=== PATIENT | female | born 1995 | race Caucasian/White ===

== ENCOUNTER 2022-04-07 09:30 | Outpatient (CLI) | payer BC, SELFPAY ==
[2022-04-07 14:32] LABS: Lipase* 83 U/L (23-300)
== END 2022-04-07 09:31 | disposition home or self-care (01) ==
LOC: LKVREF 09:33
PROVIDERS: PCP Physician Assistant Medical; Visit Provider Physician Assistant Medical
DX: R10.9 Unspecified abdominal pain (principal)
CPT/HCPCS: 83690; 87086

== ENCOUNTER 2022-05-07 14:59 | Outpatient (CLI) | payer BC, SELFPAY ==
--- NOTE | 2022-05-07 15:00 | CRLHL7_ITS ---
For Patients: As a result of the Century Cures Act, medical imaging exams and procedure reports are released immediately into your electronic medical record. You may view this report before your referring provider. If you have questions, please contact your health care provider. INDICATION: PELVIC PAIN COMPARISON: none TECHNIQUE: 2D mas scale and color Doppler images were acquired of the pelvis using a transabdominal and transvaginal approach. FINDINGS: Sonographic images demonstrate a normal size and smooth outer contour of the uterus. Uterus measures 8.1 cm in length by 3.8 cm in AP diameter by 5.3 cm in transverse dimension. The myometrium has a normal uniform echotexture. The endometrial lining measures 10 mm in composite thickness. Slightly hyperechoic structure located within the endocervical canal measuring 1.3 x 0.6 x 0.4 cm. The right ovary measures 3.4 x 1.8 x 2.3 cm in size and the left ovary measures 3.5 x 1.7 x 2.6 cm. The ovaries demonstrate normal arterial and venous blood flow on color Doppler analysis. There are no suspicious fluid collections within the cul-de-sac. Trace physiologic free fluid. IMPRESSION: Normal ovaries. No adnexal mass or evidence of torsion. Suspicion of an endocervical polyp measuring 1.3 x 0.6 x 0.4 cm. Dictated by Chidi Amezcua MD @ 05/07/2022 3:56:50 PM (Electronically Signed)
== END 2022-05-07 15:00 | disposition home or self-care (01) ==
LOC: US 14:59
PROVIDERS: PCP Physician Assistant Medical; Visit Provider Physician Assistant Medical
DX: R10.2 Pelvic and perineal pain (principal); N84.1 Polyp of cervix uteri
CPT/HCPCS: 76830; 76856; 93976

== ENCOUNTER 2022-06-17 08:18 | Outpatient (CLI) | payer BC, SELFPAY ==
[2022-06-17 13:33] LABS: Cholesterol* 159 mg/dL (90-199)
[2022-06-17 13:34] LABS: Glucose* 97 mg/dL (60-115); HDL Cholesterol* 52 mg/dL (>=50); LDL Cholesterol Calculated 95 mg/dL (<100); Triglycerides* 61 mg/dL (40-149)
[2022-06-17 13:38] LABS: Iron* 89 ug/dL (37-170)
[2022-06-17 13:55] LABS: Vitamin D 25 Hydroxy* 42 ng/mL (30-80)
[2022-06-17 14:23] LABS: Vitamin B12* 504 pg/mL (243-894)
== END 2022-06-17 08:19 | disposition home or self-care (01) ==
PROVIDERS: PCP Physician Assistant Medical; Visit Provider Physician Assistant Medical
DX: Z00.00 Encounter for general adult medical examination without abnormal findings (principal); E66.9 Obesity, unspecified; F41.9 Anxiety disorder, unspecified; Z13.6 Encounter for screening for cardiovascular disorders; Z13.1 Encounter for screening for diabetes mellitus; Z13.29 Encounter for screening for other suspected endocrine disorder
CPT/HCPCS: 80061; 82306; 82607; 82947; 83540; 84443

== ENCOUNTER 2022-07-07 13:03 | Outpatient (CLI) | payer BC, SELFPAY ==
--- NOTE | 2022-07-07 13:00 | CRLHL7_ITS ---
For Patients: As a result of the Century Cures Act, medical imaging exams and procedure reports are released immediately into your electronic medical record. You may view this report before your referring provider. If you have questions, please contact your health care provider. INDICATION: Headache. Speech difficulty. COMPARISON: None. TECHNIQUE: Multiplanar T1, T2, FLAIR and diffusion-weighted imaging. FINDINGS: Normal brain parenchymal morphology and signal intensity. No intracranial hemorrhage. No abnormal ventricular dilatation. Intracranial vascular flow voids are preserved. No mass or mass effect. No midline shift. No restricted diffusion to suggest acute ischemia. Bilateral orbits are unremarkable. Normal appearing sella. Visualized paranasal sinuses and mastoid air cells are unremarkable. IMPRESSION: 1. No acute intracranial abnormality. 2. Normal brain parenchymal morphology and signal intensity Dictated by Aneesh Morrison MD @ 07/07/2022 3:04:12 PM (Electronically Signed)
== END 2022-07-07 13:04 | disposition home or self-care (01) ==
LOC: MRI 13:04
PROVIDERS: PCP Physician Assistant Medical; Visit Provider Physician Assistant Medical
DX: R51.9 Headache, unspecified (principal); R47.9 Unspecified speech disturbances
CPT/HCPCS: 70551

== ENCOUNTER 2022-08-05 15:41 | Outpatient (CLI) | payer BC, SELFPAY ==
[2022-08-05 23:39] LABS: Chlamydia DNA Amplified* NOT DETECTED (No Detected); GC DNA Amplified* NOT DETECTED (No Detected)
== END 2022-08-05 15:42 | disposition home or self-care (01) ==
LOC: LKVREF 16:00
PROVIDERS: PCP Physician Assistant Medical; Visit Provider Physician Assistant Medical
DX: N89.8 Other specified noninflammatory disorders of vagina (principal)
CPT/HCPCS: 0353U; 87491; 87591

== ENCOUNTER 2023-01-09 10:00 | Outpatient (CLI) | payer BC, SELFPAY ==
[2023-01-09 18:57] LABS: Chlamydia DNA Amplified* NOT DETECTED (No Detected); GC DNA Amplified* NOT DETECTED (No Detected)
== END 2023-01-09 10:01 | disposition home or self-care (01) ==
LOC: LKVREF 10:03
PROVIDERS: PCP Physician Assistant Medical; Visit Provider Nurse Practitioner Family
DX: N89.8 Other specified noninflammatory disorders of vagina (principal)
CPT/HCPCS: 87086; 87491; 87591

== ENCOUNTER 2023-05-10 13:41 | Outpatient (REF) | payer OTHER, BC, SELFPAY ==
[2023-05-13 13:57] LABS: Prolactin 12.1 ng/mL (2.8-29.2)
== END 2023-05-10 13:42 | disposition home or self-care (01) ==
LOC: NPINS 13:41
PROVIDERS: PCP Physician Assistant Medical
DX: N83.00 Follicular cyst of ovary, unspecified side (principal); Z13.29 Encounter for screening for other suspected endocrine disorder; Z11.9 Encounter for screening for infectious and parasitic diseases, unspecified; Z31.5 Encounter for procreative genetic counseling; Z31.7 Encounter for procreative management and counseling for gestational carrier
CPT/HCPCS: 84146; 84443; 86762; 86787

== ENCOUNTER 2023-05-31 12:22 | Outpatient (CLI) | payer OTHER, BC, SELFPAY | END 2023-05-31 12:23 | disposition home or self-care (01) | LOC: LKVREF 13:02 | PROVIDERS: PCP Physician Assistant Medical; Visit Provider Physician Assistant | DX: R35.0 Frequency of micturition (principal) | CPT/HCPCS: 87086 ==

== ENCOUNTER 2023-11-15 08:03 | Outpatient (CLI) | payer OTHER, SELFPAY ==
--- NOTE | 2023-11-15 08:15 | CRLHL7_ITS ---
For Patients: As a result of the Century Cures Act, medical imaging exams and procedure reports are released immediately into your electronic medical record. You may view this report before your referring provider. If you have questions, please contact your health care provider. INDICATION: viability and embryo transfer 09/30/2023 COMPARISON: None. TECHNIQUE: Real-time mas-scale imaging of the pelvis was performed. FINDINGS: Sonographic imaging demonstrates a single living intrauterine gestation. The embryo demonstrates a regular cardiac rate measuring 178 beats per minute. The embryo`s crown-rump length measurement of 2.5 cm corresponds to a gestational age of 9 weeks 1 day with a sonographic due date of 06/18/2024. There is a normal-appearing yolk sac. There are no gross abnormalities noted within the embryo at this early state of development. The gestational sac has a normal appearance. There is no evidence of a perigestational hemorrhage. The amount of fluid within the sac appears appropriate for gestational age. The cervix is closed. The myometrium appears normal. Normal left ovary. Right ovary unremarkable. There are no suspicious fluid collections noted in the cul-de-sac. IMPRESSION: Single living intrauterine with sonographic gestational age 9 weeks 1 day and sonographic due date of 06/18/2024. Dictated by Chidi Amezcua MD @ 11/15/2023 12:05:32 PM (Electronically Signed)
== END 2023-11-15 08:04 | disposition home or self-care (01) ==
LOC: US 08:04
PROVIDERS: PCP Physician Assistant Medical; Visit Provider Registered Nurse
DX: O09.811 Supervision of pregnancy resulting from assisted reproductive technology, first trimester (principal); Z3A.09 9 weeks gestation of pregnancy
CPT/HCPCS: 76817; 86703; 86706; 86803; 86850; 86900; 86901; 87086; 87340

== ENCOUNTER 2023-11-15 09:56 | Outpatient (CLI) | payer OTHER, SELFPAY | END 2023-11-15 09:57 | disposition home or self-care (01) | PROVIDERS: PCP Physician Assistant Medical; Visit Provider Physician Assistant | DX: Z34.81 Encounter for supervision of other normal pregnancy, first trimester (principal) | CPT/HCPCS: 86592; 86703; 86704; 86706; 86762; 86787; 86803; 86850; 86900; 86901; 87086; 87340 ==

== ENCOUNTER 2024-01-25 07:49 | Outpatient (CLI) | payer OTHER, SELFPAY | END 2024-01-25 07:50 | disposition home or self-care (01) | LOC: US 07:50 | PROVIDERS: PCP Physician Assistant Medical; Visit Provider Advanced Practice Midwife | DX: O09.812 Supervision of pregnancy resulting from assisted reproductive technology, second trimester (principal); Z3A.19 19 weeks gestation of pregnancy | CPT/HCPCS: 76811 ==

== ENCOUNTER 2024-03-26 10:05 | Outpatient (CLI) | payer OTHER, SELFPAY ==
--- NOTE | 2024-03-26 10:15 | CRLHL7_ITS ---
For Patients: As a result of the Cures Act, medical imaging exams and procedure reports are released immediately into your electronic medical record. You may view this report before your referring provider. If you have questions, please contact your health care provider. INDICATION: velamentous cord insertion COMPARISON: 02/24/2024 TECHNIQUE: Real time mas scale imaging of the fetus was performed. FINDINGS: Sonographic imaging demonstrates a single living intrauterine gestation. Fetus demonstrates a regular cardiac rate of 147 beats per minute. Fetus has a vertex position. The placenta lies anteriorly. Amniotic fluid volume appears normal and there is a single deepest vertical pocket: 4.7 cm. The estimated weight is 1099gm which lies at the 20th %. On the prior OB ultrasound exam dated 02/24/2024 the estimated weight was at the 13th%. BPD less than 3rd percentile. HC is 17th percentile. AC 47th percentile. FL 7th percentile. The HC/AC ratio measures 1.07 range (1.04-1.22). IMPRESSION: Sonographic gestational age 27 weeks 2 days and sonographic due date of 06/23/2024. Sonographic age 6 days behind the clinical age. Estimated weight at 20th percentile. Abdominal circumference 47th percentile. BPD less than 3rd percentile. Dictated by Chidi Amezcua MD @ 03/27/2024 10:56:35 AM (Electronically Signed)
== END 2024-03-26 10:06 | disposition home or self-care (01) ==
LOC: US 10:06
PROVIDERS: PCP Physician Assistant Medical; Visit Provider Physician Assistant
DX: O43.122 Velamentous insertion of umbilical cord, second trimester (principal); Z3A.27 27 weeks gestation of pregnancy
CPT/HCPCS: 76816

== ENCOUNTER 2024-03-26 10:05 | Outpatient (CLI) | payer OTHER, SELFPAY | END 2024-03-26 10:06 | disposition home or self-care (01) | LOC: NFLDREF 03-28 09:37 | PROVIDERS: PCP Physician Assistant Medical; Referring Provider Physician Assistant Medical; Visit Provider Physician Assistant | DX: Z34.93 Encounter for supervision of normal pregnancy, unspecified, third trimester (principal); Z3A.28 28 weeks gestation of pregnancy | CPT/HCPCS: 86592 ==

== ENCOUNTER 2024-04-23 07:18 | Outpatient (CLI) | payer OTHER, SELFPAY ==
--- NOTE | 2024-04-23 07:15 | CRLHL7_ITS ---
For Patients: As a result of the Century Cures Act, medical imaging exams and procedure reports are released immediately into your electronic medical record. You may view this report before your referring provider. If you have questions, please contact your health care provider. INDICATION: Third trimester scan, evaluate growth. Velamentous Cord Insert. COMPARISON: 03/26/2024 TECHNIQUE: Real time mas scale imaging of the fetus was performed. FINDINGS/IMPRESSION: Sonographic imaging demonstrates a single living intrauterine gestation. Fetus demonstrates a regular cardiac rate of 145 beats per minute. Fetus has a vertex position. The placenta lies anteriorly. Amniotic fluid volume appears normal and there is a single deepest vertical pocket: 4.6 cm. The estimated weight is 1715gm which lies at the 15th %. On the prior OB ultrasound exam dated 03/26/2024 the estimated weight was at the 20th%. BPD 7th percentile. HC 29th percentile. AC is 29th percentile. FL is 5th percentile. The HC/AC ratio measures 1.08 range (0.96-1.16). Sonographic gestational age 31 weeks 2 days and sonographic due date of 06/23/2024. Sonographic age 6 days behind the clinical age. Dictated by Chidi Amezcua MD @ 04/23/2024 8:36:27 AM (Electronically Signed)
== END 2024-04-23 07:19 | disposition home or self-care (01) ==
LOC: US 07:19
PROVIDERS: PCP Physician Assistant Medical; Visit Provider Registered Nurse
DX: O43.123 Velamentous insertion of umbilical cord, third trimester (principal); Z3A.31 31 weeks gestation of pregnancy
CPT/HCPCS: 76816

== ENCOUNTER 2024-05-21 07:16 | Outpatient (CLI) | payer OTHER, SELFPAY ==
--- NOTE | 2024-05-21 07:15 | CRLHL7_ITS ---
For Patients: As a result of the Century Cures Act, medical imaging exams and procedure reports are released immediately into your electronic medical record. You may view this report before your referring provider. If you have questions, please contact your health care provider. INDICATION: Velamentous cord insertion, IVF COMPARISON: 04/23/2024 TECHNIQUE: Christopher-scale and color Doppler of the gravid uterus and fetus from a transabdominal approach. Duplex Doppler ultrasound of the umbilical artery. FINDINGS: Provided gestational age: 36 weeks 1 day Single intrauterine gestation in a vertex presentation. heart rate is 132 bpm. The heart, stomach, kidneys, and bladder appear normal. Normal appearance of the nostrils and upper lip. No pleural effusion, pericardial effusion, ascites, or skin edema. Biparietal diameter: 8.4 cm Head circumference: 31.8 cm Abdominal circumference: 30.3 cm Femur length: 6.6 cm HC/AC: 1.05, normal for gestational age. The composite ultrasound estimated gestational age is 34 weeks 3 days. The estimated weight is 2338 grams, or 5 pounds 4. This corresponds to the 10th percentile for gestational age. Amniotic fluid volume is normal. The placenta is anterior. No previa. No periplacental hemorrhage. WELLBEING tone: 0/2 movement: 2/2 breathin/2 Amniotic fluid volume: 2/2 The single deepest vertical pocket measures: 5.4 cm. The umbilical artery S/D ratio is 3.1, which is normal for gestational age. MATERNAL Cervix could not be seen transabdominally. IMPRESSION: 1. Single intrauterine gestation. Estimated weight is at the 10th percentile for gestational age. 2. Biophysical profile score is 6/8. No points for tone. 3. Normal umbilical artery SD ratio for gestational age. Dictated by Monica Maurer MD @ 05/21/2024 8:36:48 AM (Electronically Signed)
== END 2024-05-21 07:17 | disposition home or self-care (01) ==
LOC: US 07:18
PROVIDERS: PCP Physician Assistant Medical; Visit Provider Registered Nurse
DX: O43.123 Velamentous insertion of umbilical cord, third trimester (principal); O36.8130 Decreased fetal movements, third trimester, not applicable or unspecified; Z3A.36 36 weeks gestation of pregnancy
CPT/HCPCS: 76816; 76819; 76820; 87081; 87653

== ENCOUNTER 2024-05-28 07:23 | Outpatient (CLI) | payer OTHER, SELFPAY ==
--- NOTE | 2024-05-28 07:15 | CRLHL7_ITS ---
For Patients: As a result of the Cures Act, medical imaging exams and procedure reports are released immediately into your electronic medical record. You may view this report before your referring provider. If you have questions, please contact your health care provider. OB BIOPHYSICAL PROFILE, 05/28/2024 CLINICAL HISTORY: IVF, velamentous CI. GA: 37 weeks 0 days. COMPARISON: 04/23/2024, 03/26/2024. TECHNIQUE: Transabdominal. FINDINGS: Gestation: Single. Cervix: Not visualized. Positioning: Vertex. Amniotic Fluid: 5.5 cm. Biophysical Profile 8 Total Score 2 Gross Body Movements 2 Tone 2 Respiratory Motion 2 Amniotic Fluid Placenta Technique: TA. Position: Anterior. Dopplers Heart Rate: 131 bpm. IMPRESSION: Normal biophysical profile score of 8/8. Chidi Amezcua M.D. Diagnostic Radiologist [email or web address] Transcribed: 9:50 am DW/Dictated by: Chidi Amezcua MD @ 05/28/2024 8:14:00 AM (Electronically Signed)
== END 2024-05-28 07:24 | disposition home or self-care (01) ==
LOC: US 07:24
PROVIDERS: PCP Physician Assistant Medical; Visit Provider Registered Nurse
DX: O43.123 Velamentous insertion of umbilical cord, third trimester (principal); O09.813 Supervision of pregnancy resulting from assisted reproductive technology, third trimester; Z33.3 Pregnant state, gestational carrier; Z3A.37 37 weeks gestation of pregnancy
CPT/HCPCS: 76819

== ENCOUNTER 2024-06-04 07:16 | Outpatient (CLI) | payer OTHER, SELFPAY ==
--- NOTE | 2024-06-04 07:15 | CRLHL7_ITS ---
For Patients: As a result of the Cures Act, medical imaging exams and procedure reports are released immediately into your electronic medical record. You may view this report before your referring provider. If you have questions, please contact your health care provider. OB ULTRASOUND BIOPHYSICAL PROFILE ROBERT by US: 06/17/2024. GA: 38 w, 1 d. Single. Comparison: 05/28/2024, 05/21/2024, 04/23/2024. INDICATION: IVF Velamentous CI. TECHNIQUE: Real time mas scale imaging of the fetus was performed. Transabdominal. CERVIX: Not visualized. POSITIONIN.7. AMNIOTIC FLUID: 8.7 cm. SDP (N: greater than 2 x 1 cm) BIOPHYSICAL PROFILE: Total score: 2. Gross body movements: 2. tone: 2. Respiratory activity: 2. Amniotic fluid: 2.(SDP N: greater than 2 x 1 cm) PLACENTA POSITION: Anterior. DOPPLER: heart rate: 132 bpm. IMPRESSION: 1. Normal biophysical profile 88. 2. Amniotic fluid single deepest pocket 8.7 cm. SCOT 24.7 cm. Chidi Amezcua M.D. Diagnostic Radiologist [email or web address] JR/Dictated by: Chidi Amezcua MD @ 06/04/2024 8:19:00 AM (Electronically Signed)
== END 2024-06-04 07:17 | disposition home or self-care (01) ==
PROVIDERS: PCP Physician Assistant Medical; Visit Provider Registered Nurse
DX: O40.3XX0 Polyhydramnios, third trimester, not applicable or unspecified (principal); O43.123 Velamentous insertion of umbilical cord, third trimester; Z3A.38 38 weeks gestation of pregnancy; Z33.3 Pregnant state, gestational carrier
CPT/HCPCS: 76819

== ENCOUNTER 2024-06-04 08:56 | Inpatient (IN) | payer OTHER, SELFPAY ==
[2024-06-04] VITALS (17 sets, daily range): BP systolic 108–141; BP diastolic 62–84; PULSE 83–113; RESP 16; TEMP 36.5–36.7; O2SAT 90–100; BMI 41.1
--- NOTE | 2024-06-04 12:40 | W.PM.LDBA ---
Subjective History of Present Illness Date Seen: 06/04/24 Narrative: Sravani is being admitted to Labor and Delivery for PROM. She was in the clinic for a routine visit and had spontaneous PROM when laying down with a large amount of clear fluid. She is a 29 year old at 38.1 weeks gestation. Her full history and physical was dictated by Ramiro Espinal CNM on 05/28/24. Please see this for details. She denies feeling contractions on admit but does endorses a small amount of irregular cramping. Discussed options for continuing with labor including expectant management or augmentation. Risks and benefits of each were discussed and questions answered. She would like to proceed with expectant management. The parents of this child will be arriving by plane late tonight. Specific Issues/Plans Dads: [place], living in [facility], hope to be here for delivery IOL 06/11 for IVF/Velamentous Cord Insertion, FOB's will be here for IOL; desires membrane sweep Tuesday before, ok'd, consent signed H&P done by Ramiro Espinal CNM on 05/28/24 #IVF, surrogate carrier Consider ASA 81mg Completed pre implantation genetics Donor Egg Level 2 ultrasound and MFM consult: ordered echo: Likely normal echo. Technically difficult study. Consider growth ultrasound at 32: see testing/US below 36 weeks start weekly BPP: may desire NST's if able to do in [place] IOL at 39 0/7: Plan with Surrogates so that they can come, Jun 11 tentatively #History of gestational diabetes Hgb A1-C: 4.9 Early 1hr GTT: 113 done 02/08/2024 #Migraines #History of depression, doing well off medication # Obesity, BMI 37.7; Hx of gastric sleeve in 2021 Hgb A1-C: 4.9 # Velamentous Cord insertion Growth every 4 weeks Growth US at 28 weeks: 19.6%ile once weekly BPP beginning at 36 weeks for velamentous cord insertion: Has visits already scheduled # Mild polyhydramnios SCOT 24.7. Dx at 38.1wks. Ultrasound: Level 2 US and MFM recommendations 01/24: placenta anterior, no previa Velamentous insertion: rec. surveillance w/ growth scans every 4 weeks and surveillance w/ once weekly BPP beginning at 36 weeks for velamentous cord insertion and IVF . no anomalies seen growth and efw appropriate scot normal Refer to Peds Cardiology for echo, scheduled 02/23 Refer to [facility] for growth and anatomy eval (incl. anatomy not well-visualized on FAS), same day as echo: Anatomy completed, normal. EFW 13th percentile, previously 54th percentile Consider delivery at or after 39 0/7 weeks 03/26/2024: Growth US: Vertex, EFW 19.6%ile. 05/21/2024: Growth US: Vertex, EFW 10.1% OB - Problem Based A/P Additional Plan (1) Polyhydramnios affecting in third trimester: Status: Acute (2) Velamentous insertion of umbilical cord: Status: Acute (3) Surrogate : Status: Acute (4) Conceived by in vitro fertilization: Status: Acute (5) BMI 37.0-37.9, adult: Status: Acute (6) Depressed mood: Problem details: History of utilizing Effexor. Status: Chronic (7) Anxiety: Problem details: Held/stopped prior to . Interested in pursuing surrogacy. She wanted to try to see with things would like without the medication given she had coping tools. History of being on Effexor. Status: Chronic Plan ASSESSMENT:? at 38.1 weeks gestation? GBS negative? complicated by: Newly diagnosed polyhydramnios, velamentous cord insertion, IVF and surrogacy , prepregnancy BMI 37, history of anxiety and depression.? Labor type: PROM Blood type:?A+ ?? PLAN:? 1. Reviewed risks and benefits of argumentation with Pitocin vs expectant management. Pt prefers expectant management. Can consider Pitocin if no signs of progression to active labor in 6 hours. ? 2. Desires water . Consent signed. Hep C negative.? 3. Candidate for analgesia of choice. Planning unmedicated .? 4. Anticipate ? 5. Expectant management at this time.? 6. Continuous monitoring for newly diagnosed polyhydramnios. Delivery/Labor/Induction Plan Plan: expectant management OB Result Labs Blood Type: A (+) positive Rubella: immune RPR/VDLR: nonreactive GBS Status: negative HBsAG: negative OB Exam Physical Exam Vital signs: Temp Pulse BP Pulse Ox 98.1 F 83 115/66 94 06/04/24 12:01 06/04/24 12:01 06/04/24 12:01 06/04/24 08:58 Narrative: Psychiatric:? Alert and oriented x3? HEENT:? Normocephalic, atraumatic? Neck:? Supple without adenopathy or thyromegaly? Lungs:? Clear to auscultation bilaterally? Heart:? Regular rate and rhythm, no murmur, rub or gallop? Abdomen:? Soft, nontender, and gravid? Extremities:? No edema or erythema? Detailed Labor and Delivery Exam Patient Gravid: Yes Contraction intensity: Mild Fetus (Single) Heart Rate Baseline: 130 Monitor Accelerations: Absent Monitor Decelerations: None Halfway Variability: Moderate (6-25)
[2024-06-04] MEDS: OXYTOCIN 10 UNIT/ML INJ IM (13:48)
--- NOTE | 2024-06-04 14:10 | W.PM.OBVAGDE ---
OB Procedure Vag Delivery Mother Details Mother Details: The patient is a 29 year-old, 2, Para 1, admitted on 06/04/24 at 38.1 Days gestation. : 2 Para: 2 Weeks Gestation: 38.1 Admission Date: 06/04/24 Additional Details Amniotic Membrane Status: SROM Amniotic Membrane Rupture Date: 06/04/24 Amniotic Membrane Rupture Time: 08:45 Amniotic Membrane Fluid Description: Clear Analgesia/Anesthesia Type: None Waterbirth: Yes Pitcoin: Yes ([facility] only) Intrapartal Events: Precipitous Labor <3 Hrs Labor Onset: 12:31 Complete: 13:20 Pushin:20 Heart: heart tones during second stage were difficult to trace due to maternal position and body habitus as well as rapid progression in the second stage. FHR mostly 130's per tracing and heard by the monitors. Delivery Details Delivery Date: 06/04/24 Delivery Time: 13:29 Route of delivery: Gender: Male Infant Viability: Alive; Heart Rate Present Position at Delivery: OA Delivery Details: Patient was admitted for PROM with a large amount of clear fluid and progressed normally. SROM noted at 0845 with clear fluid. Patient was presumed complete with spontaneous pushing at 1320. of a viable male at 1329 in the tub. Vertex delivered OA. No nuchal cord or shoulder. Shoulders took about 50 seconds to delivery due to lack of maternal effort, there was not a shoulder dystocia. Body delivered easily and without incident. passed to mothers abdomen. Due to lack for breathing effort the decision was made at less than 1 minute to clamp and cut the cord. Baby had great respiratory effort and cry as soon as he was placed on the warmer. APGARS were 7 at one minute and 9 at five minutes respectively. Mouth was bulb suctioned. Intact placenta with a 3 vessel cord delivered spontaneously at 1341. For delivery of the placenta there was very little traction placed on the cord for known velamentous cord insertion. It delivered easily with maternal bearing down and very light traction on the cord. The placenta was noted to have velamentous and marginal cord insertion as well as a circumvallate placenta. will end placenta to pathology. Fundus firm. Very small 1st degree labial and perineal lacerations were identified and were well approximated and hemostatic. After shared decision making they were not repaired. QBL 30 cc. Mother and baby stable; mother plans to breastfeed. weight 6lb 8oz.?She was given the option to hold baby skin to skin or swaddled given her surrogacy status but did desire to do skin to skin as she felt this what was best for baby. Encouraged her to inform us as to what she is comfortable with or not. 1 Minute Interval Total Score: 7 5 Minute Interval Total Score: 9 Additional Details Shoulder Dystocia: No Placenta Delivery Time: 13:41 Placental Delivery Description: Spontaneous Procedure Done: Global Blood Loss: 30 Laceration: Perineal - 1st Degree (and 1st degree labial ) Episiotomy Description: None Blood Loss Measurement Type: QBL Bakri Used: No Sponge/Need Count Correct: Yes Cord Vessel Description: 3 Vessels Event Summary Status: Mother and infant were stable after delivery. Disposition: floor
[2024-06-05 03:06] VITALS: BP 116/78; PULSE 71; RESP 16; TEMP 36.5; O2SAT 98
[2024-06-05 08:38] VITALS: BP 117/80; PULSE 73; RESP 16; TEMP 36.7; O2SAT 99
[2024-06-05] MEDS: DOCUSATE SODIUM 100 MG CAPSULE PO (08:44)
--- NOTE | 2024-06-05 11:16 | PM.OBDSVD1 ---
DS: Providers Provider Date Seen: 06/05/24 Date of admission: 06/04/24 08:56 Primary care physician: Amarilis Romero PA-C Admitting Clinician: Radha Baez CNM Attending Physician on discharge: Monica Long CNM DS: Diagnosis Discharge Diagnosis (1) care and examination immediately after delivery: Status: Acute (2) Lactating mother: Status: Acute (3) Surrogate : Status: Acute (4) Depressed mood: Status: Chronic Problem details: History of utilizing Effexor. (5) Anxiety: Status: Chronic Problem details: Held/stopped prior to . Interested in pursuing surrogacy. She wanted to try to see with things would like without the medication given she had coping tools. History of being on Effexor. Exam Narrative: Exam Narrative: GENERAL APPEARANCE:? normal affect, alert, no distress MOOD:? appropriate CHEST:? clear to auscultation HEART:? regular rate and rhythm ABDOMEN:? soft, non-tender the uterine fundus is At Umbilicus, Midline and is appropriate for the stage of recovery. PERINEUM:? mild edema of the perineum, there is a Perineal Laceration,?1st degree, that is healing well. EXTREMITIES:? normal and no edema Const: Vital Signs, click to edit/add: Vital Signs - 24 hr 06/04/24 12:01 06/04/24 13:28 06/04/24 13:39 Temperature 98.1 F 97.8 F Pulse Rate 83 Pulse Rate [Pulse Oximeter] Respiratory Rate Blood Pressure 115/66 Blood Pressure [Ri ght Arm] Pulse Oximetry 100 Oxygen Delivery Md thod 06/04/24 13:44 06/04/24 13:49 06/04/24 13:54 Temperature Pulse Rate 95 Pulse Rate [Pulse Oximeter] Respiratory Rate Blood Pressure 124/71 Blood Pressure [Ri ght Arm] Pulse Oximetry 100 100 90 Oxygen Delivery Md thod 06/04/24 13:59 06/04/24 14:14 06/04/24 14:29 Temperature Pulse Rate 88 94 100 Pulse Rate [Pulse Oximeter] Respiratory Rate Blood Pressure 126/62 126/65 115/70 Blood Pressure [Ri ght Arm] Pulse Oximetry Oxygen Delivery Md thod 06/04/24 14:44 06/04/24 14:59 06/04/24 15:14 Temperature Pulse Rate 105 H 86 100 Pulse Rate [Pulse Oximeter] Respiratory Rate Blood Pressure 114/67 109/65 141/72 H Blood Pressure [Ri ght Arm] Pulse Oximetry Oxygen Delivery Me thod 06/04/24 15:29 06/04/24 20:03 06/04/24 23:27 Temperature 98.1 F 97.7 F Pulse Rate 94 Pulse Rate [Pulse Oximeter] 90 84 Respiratory Rate 16 16 Blood Pressure 109/66 Blood Pressure [Ri ght Arm] 124/76 108/63 Pulse Oximetry 99 99 Oxygen Delivery Me thod Room Air Room Air 06/05/24 03:06 06/05/24 08:38 Temperature 97.7 F 98.0 F Pulse Rate Pulse Rate [Pulse Oximeter] 71 73 Respiratory Rate 16 16 Blood Pressure Blood Pressure [Ri ght Arm] 116/78 117/80 Pulse Oximetry 98 99 Oxygen Delivery Me thod Room Air Room Air Documenting provider has reviewed patient's vital signs: yes OB - DS: Summary Hospital Course Hospital Course: Sravani is a 29 y.o. G 2 P 2 who was admitted to [facility] for spontaneous onset of labor following PROM. ?She had a NVD that was uncomplicated. The patient feels well. ?The pain is well controlled with current medications. ?She has no new complaints. She is not or pumping. the patient has done well.? Vitals have been stable.? She has remained afebrile.? Has a good appetite, is tolerating a general diet. ?She is voiding without difficulty.? She is passing gas and has not had a bowel movement.? She is ambulating and denies any dizziness.? Has small amount of rubra lochia. Problems: none Peripartum Data Infant delivery method: Vaginal Laceration description: Perineal - 1st Degree (not repaired) complications: none [place] Infant Gender: Male Discharge Plan: Home Status at Discharge Functional status at discharge: independent ambulation Overall status at discharge: patient is progressing back to baseline Time Spent with Patient Time attestation: Total time spent providing and/or coordinating discharge services: Time spent: Less than 30 minutes Discharge Plan Discharge Disposition: Home, Self-Care Date of Admission: 06/04/24 08:56 Attending Provider on Discharge: Monica Long Primary Care Provider: Amarilis Romero Condition: Stable Anticipated Discharge Date/Time: 06/05/24 12:00 Discharge Medications: New acetaminophen 500 mg Tablet 1,000 mg PO Q6H PRNQty: 0 0RF docusate sodium 100 mg Capsule 100 mg PO DAILY Qty: 60 0RF ibuprofen 600 mg Tablet 600 mg PO Q6H PRNQty: 60 0RF Continued sumatriptan succinate 50 mg tablet 50 mg PO .As Needed as needed PRN Rx Instructions: ONE TAB AT ONSET OF HEADACHE, MAY REPEAT Q2H PRN, MAX 200 MG/24 HRS famotidine 20 mg tablet 20 mg PO BID MDD 2 PRN (Reason: heartburn) Qty: 60 3RF [id number] 3-fat com #1 27-1-300 mg capsule PO Discharge Orders: Discharge Order (Routine); Ordered 06/05/24 Ordered By: Monica Long Patient Education: OB Over the Counter Medication Information, OB Vaginal/Bottle Feeding Additional Instructions: Discharge instructions were reviewed with the patient including signs and symptoms of infection and home going medications Nothing vaginally for 6 weeks: no tampons or intercourse Do not drive while taking narcotic pain medication(s) Off Work or School for 8 weeks 2-week visit: discuss feeding concerns, review control options and screen for anxiety/depression. 6-week visit for an annual exam. consultation services are available to all mothers and babies for the first year after delivery.? To make an appointment, please call [phone]. Activity Level: Activity as Tolerated Discharge Diet: Regular Follow Up Appointments: [facility] [Provider Group] Forms: [employer] Info Instructions
[2024-06-05 13:32] VITALS: BP 107/73; PULSE 73; RESP 16; TEMP 36.5; O2SAT 98
[2024-06-05 17:41] VITALS: BP 127/87; PULSE 75; RESP 18; TEMP 36.5; O2SAT 98
== END 2024-06-05 17:55 | disposition home or self-care (01) | DRG 807 ==
PROVIDERS: Admitting Provider Advanced Practice Midwife; PCP Physician Assistant Medical; Visit Provider Advanced Practice Midwife
DX: O42.02 Full-term premature rupture of membranes, onset of labor within 24 hours of rupture (principal); Z37.0 Single live birth; Z3A.38 38 weeks gestation of pregnancy; Z86.32 Personal history of gestational diabetes; O99.214 Obesity complicating childbirth; E66.9 Obesity, unspecified; O99.344 Other mental disorders complicating childbirth; F32.A Depression, unspecified; O40.3XX0 Polyhydramnios, third trimester, not applicable or unspecified; O69.89X0 Labor and delivery complicated by other cord complications, not applicable or unspecified; F41.9 Anxiety disorder, unspecified; O70.0 First degree perineal laceration during delivery; G43.109 Migraine with aura, not intractable, without status migrainosus; Z33.3 Pregnant state, gestational carrier
CPT/HCPCS: 86592; 88307; A9270; J2590